=== PATIENT | male | born 1945 | race Caucasian/White ===

== ENCOUNTER → 2018-04-13 08:11 | Outpatient (CLI) | payer MEDICARE, OTHER, SELFPAY ==
[2018-04-13 10:11] LABS: ALB/GLOB Ratio 0.8 RATIO (0.9-2.4); AST(SGOT) 38 U/L (15-37); Alanine Aminotransfer ALT/SGPT 42 U/L (16-61); Albumin, Serum 3.4 g/dL (3.2-5.0); Alkaline Phosphatase 131 U/L (45-117); Anion Gap 9 (5-15); BUN 25 mg/dL (7-18); BUN/Creat Ratio 21.4 RATIO (10-20); Calcium,Total 8.7 mg/dL (8.5-10.1); Chloride 101 mmol/L (98-107); Cholesterol 108 mg/dL (200); Creatinine, Serum 1.17 mg/dL (0.70-1.30); EST Glomerular Filtration Rate 65 mL/min (>60); Est Glom Filt Rate - Afr Amer 78 mL/min (>60); Glucose 95 mg/dL (74-106); High Density Lipoprotein 41 mg/dL; Potassium 4.1 mmol/L (3.5-5.1); Protein, Total 7.4 g/dL (6.4-8.2); Sodium Level 138 mmol/L (136-145); Triglycerides 103 mg/dL; Uric Acid 4.5 mg/dL (3.5-7.2); Very Low Density Lipoprotein 21 mg/dL (5-40)
[2018-04-13 10:16] LABS: Hemoglobin A1c 8.1 % (4.2-6.3)
== END ==
PROVIDERS: Family Provider Family Medicine; PCP Family Medicine; Visit Provider Family Medicine
DX: I10 Essential (primary) hypertension (principal); E78.00 Pure hypercholesterolemia, unspecified; E11.9 Type 2 diabetes mellitus without complications
CPT/HCPCS: 36415; 80053; 80061; 83036; 84550

== ENCOUNTER → 2019-01-15 08:18 | Outpatient (CLI) | payer MEDICARE, OTHER, SELFPAY ==
[2019-01-15 11:33] LABS: PSA,Total - Annual Screen 0.41 ng/mL (0.00-4.00)
[2019-01-16 10:59] LABS: ALB/GLOB Ratio 0.9 RATIO (0.9-2.4); AST(SGOT) 44 U/L (15-37); Alanine Aminotransfer ALT/SGPT 39 U/L (16-61); Albumin, Serum 3.6 g/dL (3.2-5.0); Alkaline Phosphatase 213 U/L (45-117); Anion Gap 9 (5-15); BUN 23 mg/dL (7-18); BUN/Creat Ratio 20.4 RATIO (10-20); Chloride 103 mmol/L (98-107); Creatinine, Serum 1.13 mg/dL (0.70-1.30); EST Glomerular Filtration Rate 67 mL/min (>60); Est Glom Filt Rate - Afr Amer 81 mL/min (>60); Globulin 3.8 g/dL (2.2-4.2); Glucose 86 mg/dL (74-106); Potassium 4.1 mmol/L (3.5-5.1); Protein, Total 7.4 g/dL (6.4-8.2); Sodium Level 138 mmol/L (136-145)
[2019-01-16 11:02] LABS: Hemoglobin A1c 6.8 % (4.2-6.3)
== END ==
PROVIDERS: Family Provider Family Medicine; PCP Family Medicine; Referring Provider Family Medicine; Visit Provider Nurse Practitioner Family
DX: Z12.5 Encounter for screening for malignant neoplasm of prostate (principal); I10 Essential (primary) hypertension; E11.9 Type 2 diabetes mellitus without complications
CPT/HCPCS: 36415; 80053; 83036; 84153; G0103

== ENCOUNTER → 2020-01-01 09:18 | Outpatient (CLI) | payer MEDICARE, OTHER, SELFPAY ==
[2020-01-01 10:23] LABS: Microalbumin,Random Urine 49.1 mg/L (NO RANGE EST.); Microalbumin:Creatinine Ratio 49.8 mg/g CRE (<30 mg/g CRE)
[2020-01-01 10:25] LABS: ALB/GLOB Ratio 0.8 RATIO (0.9-2.4); AST(SGOT) 165 U/L (15-37); Alanine Aminotransfer ALT/SGPT 138 U/L (16-61); Albumin, Serum 3.3 g/dL (3.2-5.0); Alkaline Phosphatase 444 U/L (45-117); Anion Gap 5 (5-15); BUN 35 mg/dL (7-18); BUN/Creat Ratio 25.5 RATIO (10-20); Calcium,Total 8.7 mg/dL (8.5-10.1); Chloride 103 mmol/L (98-107); Cholesterol 124 mg/dL (200); Creatinine, Serum 1.37 mg/dL (0.70-1.30); EST Glomerular Filtration Rate 54 mL/min (>60); Est Glom Filt Rate - Afr Amer 65 mL/min (>60); Glucose 86 mg/dL (74-106); High Density Lipoprotein 19 mg/dL; Potassium 3.4 mmol/L (3.5-5.1); Protein, Total 7.3 g/dL (6.4-8.2); Sodium Level 136 mmol/L (136-145); Triglycerides 165 mg/dL; Very Low Density Lipoprotein 33 mg/dL (5-40)
== END ==
PROVIDERS: PCP Family Medicine; Referring Provider Family Medicine; Visit Provider Family Medicine
DX: E11.9 Type 2 diabetes mellitus without complications (principal)
CPT/HCPCS: 36415; 80053; 80061; 82043; 82570

== ENCOUNTER → 2020-01-12 09:11 | Outpatient (CLI) | payer MEDICARE, OTHER, SELFPAY ==
--- NOTE | 2020-01-12 09:30 | US_ITS ---
STUDY: ABDOMINAL ULTRASOUND - RIGHT UPPER QUADRANT REASON FOR VISIT: Male, 74 years old ELEV LDH TECHNIQUE: Ultrasound evaluation of the right upper quadrant was performed with real-time and static genao-scale imaging. TECHNICAL QUALITY: Adequate. COMPARISON: None. FINDINGS: Liver: The liver measures 17 cm. There is mildly heterogeneous echogenicity of the liver. The bile ducts are dilated. There is hepatic color flow. The direction of portal flow is hepatopetal. There is no demonstrated mass lesion. Gallbladder: There is a distended gallbladder. The gallbladder wall measures 3 mm. There is a negative sonographic Carmichael''s sign. There is no pericholecystic fluid. There are no gallstones. Common Bile Duct (C.B.D.): The common bile duct measures 15 mm. Pancreas: There is normal echogenicity of the visualized pancreas. There is no demonstrated pancreatic mass or cyst. Right Kidney: Normal size of the right kidney. The right kidney measures 13.3 x 7.1 x 6.4 cm. Normal renal cortex. The right cortex measures 1.6 cm. There well-defined anechoic simple cysts of the right kidney measuring up to 1.8 cm with posterior acoustic enhancement. Benign, incidental finding; no specific imaging workup recommended according to current ACR guidelines. There is no right hydronephrosis. US/Abdomen Limited IMPRESSION: 1. Intrahepatic and extrahepatic bile duct dilation with distended gallbladder. Distal CBD obstruction should be considered. Recommend ERCP or MRCP. 2. Heterogeneous hepatic parenchyma but no hepatic masses demonstrated. Electronically Signed: Armando Vela MD (Bro[place]) at 14:18 EDT , Service support ,
== END ==
PROVIDERS: PCP Family Medicine; Referring Provider Family Medicine; Visit Provider Family Medicine
DX: R74.0 Nonspecific elevation of levels of transaminase and lactic acid dehydrogenase [LDH] (principal)
CPT/HCPCS: 76705

== ENCOUNTER → 2020-01-17 06:04 | Outpatient (CLI) | payer MEDICARE, OTHER, SELFPAY ==
--- NOTE | 2020-01-17 06:15 | RAD_ITS ---
HISTORY: pre mri EXAMINATION/TECHNIQUE: XR Orbits Clearance FB: 2 views COMPARISON: None FINDINGS: 2 views of the orbits obtained for MRI clearance. No radiopaque foreign body identified. The orbits appear normal. The paranasal sinuses are well developed and appear clear. Bilateral mastoids likewise appear clear. Maxillary dental prosthesis. RAD/Orbits for Foreign Body IMPRESSION: 1. Negative orbits. No radiopaque foreign body. 2. Dental maxillary prosthesis. If imaging the brain, recommend removal of the dental hardware if possible. at [id number] Reported and signed by: Jackson Castle MD Electronically Signed: Jackson Castle at 7:03 EDT Tel , Service support ,
--- NOTE | 2020-01-17 06:38 | MRI_ITS ---
STUDY: MR MRCP WITHOUT CONTRAST REASON FOR EXAM: Male, 74 years old. bile duct abnormality, N/V, ABNORMAL LABS, F/U TO US TECHNIQUE: Standard MRCP technique was utilized. COMPARISON: Ultrasound 01/12/2020 FINDINGS: Gall Bladder: Normal with no distention or demonstrated fixed intraluminal filling defect. Cystic duct: Normal with no demonstrated fixed filling defect. Intrahepatic ducts: Mild intrahepatic biliary ductal dilatation. Common hepatic duct: Severe dilatation measuring 15 mm. Common bile duct: Severe dilatation to the level of the ampulla without obvious filling defect. Pancreatic duct: Severely dilated also to the level of the ampulla. MRI/MRCP Abdomen without Contrast IMPRESSION: Double duct sign with severe extrahepatic biliary ductal dilatation and pancreatic ductal dilatation to the level of the ampulla. Possibilities include ampullary stricture, ampullary mass, or pancreatic head mass. Electronically Signed: Alin Bearden MD at 8:25 EDT Tel , Service support ,
== END ==
PROVIDERS: PCP Family Medicine; Referring Provider Family Medicine; Visit Provider Family Medicine
DX: K82.9 Disease of gallbladder, unspecified (principal)
CPT/HCPCS: 70030; 74181

== ENCOUNTER → 2020-01-24 08:01 | Outpatient (CLI) | payer MEDICARE, OTHER, SELFPAY ==
[2020-01-18 08:40] VITALS: BMI 34.4
--- NOTE | 2020-01-24 08:02 | CT_ITS ---
STUDY: CT ABDOMEN AND PELVIS WITH CONTRAST REASON FOR EXAM: Male, 74 years old. Abnormal MRCP, occasional upper abdomen pain. Hx diabetes, hypertension. RADIATION DOSAGE (If Supplied By Facility): CTDIvol = ( 15.88 ) mGy, DLP = ( 1104.56 ) mGycm TECHNIQUE: Transaxial images were obtained from the dome of the diaphragm to the symphysis pubis with oral contrast. Oral and amp; IV Readi-CAT and amp; 100mL Isovue-300 was administered. Sagittal and coronal images were reconstructed. Individualized dose optimization techniques were used for this CT. COMPARISON: Comparison is made with prior MRCP and ultrasound of the abdomen. FINDINGS: The visualized lung bases are unremarkable. Coronary artery calcification. There is evidence of intrahepatic biliary ductal dilatation. The common bile duct is dilated with a transverse dimension of 1.7 cm. Normal spleen. There is dilatation of the pancreatic duct. Ampullary lesion should be ruled out. There appears to be a soft tissue mass within the second portion of the duodenum as it joins the third portion of the duodenum. This causes duodenal narrowing. This mass most likely represents either a pancreatic primary or a duodenal primary. Normal bilateral adrenal glands. Small right renal cysts. Multiple nonobstructive left intrarenal calculi. The largest measures 1 cm. There is evidence of a 2.8 cm cyst in the midportion of the left kidney. There is a small hiatal hernia. Normal small intestine. There are multiple colonic diverticula consistent with diverticulosis. The appendix is visualized and appears normal. There is diffuse atherosclerotic calcification of the abdominal aorta and the major visceral branches, without a demonstrated aneurysm. Normal inferior vena cava. Normal retroperitoneum. Normal urinary bladder. Normal abdominal wall. There are degenerative changes of the visualized lumbar spine. CT/Abdomen/Pelvis WITH Contrast IMPRESSION: Findings suggestive of a soft tissue mass in the second portion of the duodenum causing dilatation of the common bile duct and pancreatic duct as well as the intrahepatic biliary ducts. This mass is likely arises from either the pancreatic head or duodenum. Electronically Signed: Pablo Yan, at 10:39 EDT , Service support ,
== END ==
PROVIDERS: PCP Family Medicine; Referring Provider Surgery; Visit Provider Surgery
DX: K86.89 Other specified diseases of pancreas (principal); R93.3 Abnormal findings on diagnostic imaging of other parts of digestive tract
CPT/HCPCS: 74177; Q9967

== ENCOUNTER 2020-02-29 07:15 | Emergency (ER) | payer MEDICARE, OTHER, SELFPAY ==
[2020-01-18 08:40] VITALS: BMI 34.4
[2020-02-29] VITALS (8 sets, daily range): BP systolic 123–148; BP diastolic 47–60; PULSE 71–96; RESP 15–20; TEMP 36.8–38.7; O2SAT 96–100; BMI 33.5
--- NOTE | 2020-02-29 07:41 | EKG12_ITS ---
Test Reason : Blood Pressure : / mmHG Vent. Rate : 086 BPM Atrial Rate : 086 BPM P-R Int : 156 ms QRS Dur : 108 ms QT Int : 386 ms P-R-T Axes : 061 075 026 degrees QTc Int : 461 ms Normal sinus rhythm Normal ECG Confirmed by SHARON ROSALES, ALBERTA ([id number]), editor & co founder VIKKI JACKMAN ([id number]) on 03/03/2020 2:47:45 PM Referred By: JOSELITO Confirmed By:PADDY HERRERA MD
--- NOTE | 2020-02-29 07:42 | CT_ITS ---
STUDY: CT ABDOMEN AND PELVIS WITH CONTRAST REASON FOR EXAM: Male, 74 years old. FEVER, WHIPPLE 3 WKS AGO, DRAIN REMOVED 3 DAYS AGO RADIATION DOSAGE (If Supplied By Facility): CTDIvol = ( 12.38 ) mGy, DLP = ( 1108.28 ) mGycm TECHNIQUE: Transaxial images were obtained from the dome of the diaphragm to the symphysis pubis with oral contrast. Oral and amp; IV Gastrografin and amp; 75mL Isovue-300 was administered. Sagittal and coronal images were reconstructed. Individualized dose optimization techniques were used for this CT. COMPARISON: None. FINDINGS: The visualized lung bases are unremarkable. Coronary artery calcification. The patient scattered small hypodensities in the liver suggestive of a cyst. This is unchanged. The patient is status post. Cholecystectomy. The patient has had a WHIPPLE procedure with the resection of the head of the pancreas and portion of the duodenum. Postoperative increased markings are seen was likely postoperative changes. Normal spleen. There are pancreatic calcifications in the distribution of the ducts consistent with chronic pancreatitis. Normal bilateral adrenal glands. Stable 1.9 semi cyst in the lower pole of the right kidney. 4 cm cyst in the midportion of the left kidney. Stable left intrarenal calculi. Normal visualized stomach. Normal small intestine. Normal colon. The appendix is visualized and appears normal. There is diffuse atherosclerotic calcification of the abdominal aorta, without a demonstrated aneurysm. Normal inferior vena cava. Normal retroperitoneum. Normal urinary bladder. Normal abdominal wall. There are diffuse degenerative changes of the visualized lumbar spine. CT/Abdomen/Pelvis WITH Contrast IMPRESSION: Status post WHIPPLE procedure with resection of the head of the pancreas and the gallbladder and portion of duodenum with postoperative changes. Remainder of examination is unchanged. Electronically Signed: Pablo Yan, at 10:09 EDT , Service support ,
--- NOTE | 2020-02-29 07:44 | ED.DCSUM_ITS ---
- ER Visit Summary Date of Service: 02/29/20 Chief Complaint: Fever History of Present Illness: The patient is a 74 M who presents with a fever that began today. states his temperature at home was 102 this morning. Patient admits to feeling fatigued. Patient had a Whipple procedure at [facility] 3 weeks ago. Patient had his drain pulled recently. states they called the surgeon who told them to come to the emergency department. Patient denies any abdominal pain. Patient denies any nausea or vomiting. Patient denies any chest pain or shortness of breath. Patient denies any dysuria or hematuria. Patient states his incisions are healing well. Patient denies any discharge or drainage from the incisions. Patient denies any redness or swelling around the incisions. Physical Examination: Vital signs are stable. Patient is febrile here with a temperature of 101.6. Patient is in no acute distress. Oral mucosa is pink and moist. Neck is supple. Trachea is midline. There is no JVD. Heart was regular rate and rhythm. Lungs are clear and equal bilaterally. Abdomen is soft. Bowel sounds are normal. There is no tenderness. Incisions are healing well. There is no erythema or warmth noted. There is no discharge or drainage. Cranial nerves II through XII are intact. There are no focal motor or sensory deficits noted. Extremities are intact. There is no calf tenderness or edema. Test Results: EKG showed normal sinus rhythm with a rate of 86. There are no acute ST or T wave changes. CBC shows leukocytosis of 13.0. Hemoglobin was 7.6 and hematocrit of 23.7. Comprehensive metabolic profile showed a slightly elevated alkaline phosphatase of 245. Creatinine was 1.69 and BUN was 31. INR was normal at 1.3. PTT was normal. Portable chest x-ray was obtained. There is no acute cardiopulmonary process. CT scan of the abdomen pelvis was obtained. There are postoperative changes but no acute pathology. These were interpreted by the radiologist and reviewed by myself. Urinalysis was within no rmal limits. Emergency Department Course and Treatment: Patient was given IV fluids here. Case was discussed with the patient's surgeon Dr. Hagan. He was advised of the lab results. He stated the patient's hemoglobin when he was discharged was slightly above 8. He states that the anemia is not new. He recommended placing the patient on Augmentin. Patient was given his first dose here. Patient was given a prescription for Augmentin. Patient was instructed to follow-up with Dr. Hagan in 5 to 7 days. Patient was instructed return if worse in any way. Patient understood and was agreeable with the plan. All questions were answered. Disposition: Discharge home Impression: 1. Postoperative fever This note was generated with [employer] dictation software. It may contain incorrect words, spelling, and punctuation that were not noted in review of the chart prior to signing ED Disposition - Plan for ED Patient: Disposition: Home or Assisted Living Diagnosis: Postoperative fever Instructions: ED FUO Adult Prescriptions: Amox/Clavulanate Tablet [Augmentin Tablet] 875 mg PO Q12H #20 tab Transmission Status: Pending to [facility] Referrals: Jose Alston MD [Primary Care Provider] - 5-7 Days Additional Instructions: Follow-up with your surgeon in 5 to 7 days.
[2020-02-29] MEDS: 0.9% Normal Saline 1,000 ML 999 ML IV (07:47)
[2020-02-29 07:51] LABS: Absolute Lymphocyte Count 0.84 X10^3/uL (0.83-4.51); Absolute Neutrophil Count 10.4 X10^3/uL (2.0-7.7); Basophil# 0.02 X10^3/uL; Basophil% 0.2 % (0-1); Eosinophil# 0.02 X10^3/uL; Eosinophils% 0.2 % (0-5); Hematocrit 23.7 % (40-54); Hemoglobin 7.6 g/dL (13.0-16.5); Lymphocyte # 0.84 X10^3/ul (4.0); Lymphocyte % 6.4 % (19-41); Mean Corp Hgb Conc 32.1 g/dL (32-36); Mean Corpuscular Hgb 29.5 pg (27.0-32.0); Mean Corpuscular Volume 91.9 fL (80-94); Mean Platelet Vol. 9.1 fl (6.2-12.0); Monocyte# 1.71 X10^3/uL; Monocyte% 13.1 % (0-10); NRBC Flagged by Analyzer 0 % (0-5); Neutrophil # 10.37 X10^3/uL (2.7-7.7); Neutrophil % 79.6 % (47-70); POSITIVE DIFFERENTIAL YES; Platelet Count 401 K/mm3 (150-450); RBC Distribution Width CV 16.1 % (11.6-14.6); RBC Distribution Width SD 53.8 fl (35.1-43.9); Red Blood Count 2.58 M/mm3 (4.6-6.2)
[2020-02-29] MEDS: Acetaminophen 500 MG Tablet 1000 MG PO (07:55)
[2020-02-29 07:56] LABS: International Normalized Ratio 1.3; Partial Thromboplast Time 34.6 Seconds (24.1-36.2); Prothrombin Time (Protime)PT. 15.5 SECONDS (11.7-14.9)
[2020-02-29 08:04] LABS: Differential Indicated SCAN CRITERIA MET
[2020-02-29 08:08] LABS: ALB/GLOB Ratio 0.5 RATIO (0.9-2.4); AST(SGOT) 39 U/L (15-37); Alanine Aminotransfer ALT/SGPT 37 U/L (16-61); Albumin, Serum 2.2 g/dL (3.2-5.0); Alkaline Phosphatase 245 U/L (45-117); Anion Gap 4 (5-15); BUN 31 mg/dL (7-18); BUN/Creat Ratio 18.3 RATIO (10-20); Calcium,Total 8.1 mg/dL (8.5-10.1); Chloride 100 mmol/L (98-107); Creatinine, Serum 1.69 mg/dL (0.70-1.30); EST Glomerular Filtration Rate 42 mL/min (>60); Est Glom Filt Rate - Afr Amer 51 mL/min (>60); Estimated Creatinine Clearance 34.77 ml/min; Globulin 4.4 g/dL (2.2-4.2); Glucose 221 mg/dL (74-106); Lactic Acid 1.3 mmol/L (0.4-1.9); Potassium 3.3 mmol/L (3.5-5.1); Protein, Total 6.6 g/dL (6.4-8.2); Sodium Level 133 mmol/L (136-145)
--- NOTE | 2020-02-29 08:20 | RAD_ITS ---
STUDY: X-RAY CHEST REASON FOR EXAM: Male, 74 years old. Whipple Procedure done 3 weeks ago, Drain removed 3 days ago, fever onset yesterday. TECHNIQUE: Single AP portable view of the chest. COMPARISON: Comparison is made with prior study dated 10/10/2014. FINDINGS: EKG electrodes are seen. The lungs are clear and expanded. There is no demonstrated pleural abnormality. Normal size heart. Normal mediastinum and david. Normal visualized pulmonary arteries. There is atherosclerotic calcification of the aortic arch with tortuosity. There are diffuse degenerative changes of the visualized thoracic spine. There is degenerative osteoarthritis of the bilateral shoulders. There is no demonstrated abnormality of the visualized soft tissue structures of the upper abdomen. RAD/Chest 1 View (Portable) IMPRESSION: Stable examination. No acute abnormality is seen. Electronically Signed: Pablo Yan, at 8:53 EDT , Service support ,
[2020-02-29 08:28] LABS: Differential Comment SCANNED; Hypochromasia 2+
[2020-02-29 11:05] LABS: Bacteria 0 SEEN /hpf (None Seen); Color, Urine Yellow (Yellow); Glucose, Dipstick Normal (Normal); Ketone-Dipstick Negative (Negative); Leukocyte Esterase-Dipstick Negative /ul (Negative); Mucous, Urine 0 SEEN /hpf (<or=2+); Nitrite-Dipstick Negative (Negative); Occult Blood-Urine 10 /ul (Negative); Protein-Dipstick 30 mg/dl (Negative); Squamous Epithelial Cells - UA 0 SEEN /hpf (0-5); Urine Bilirubin Dipstick Negative (Negative); Urine Clarity Clear (Clear); Urine Urobilinogen Normal (Normal); White Blood Cells 0 SEEN /hpf (0-5)
[2020-02-29 11:14] LABS: Red Blood Cells-Urine 0-5 SEEN /hpf (0-5)
[2020-02-29] MEDS: Amox/Clavulanate 875 MG Tablet PO (13:15)
[2020-03-03 12:10] LABS: Pathologist Review Reviewed
== END 2020-02-29 13:33 | disposition home or self-care (01) ==
PROVIDERS: Emergency Provider Emergency Medicine; PCP Family Medicine
DX: R50.82 Postprocedural fever (principal); E11.9 Type 2 diabetes mellitus without complications; Z79.4 Long term (current) use of insulin; Z79.82 Long term (current) use of aspirin
CPT/HCPCS: 71045; 74177; 80053; 81001; 83605; 85025; 85610; 85730; 87040; 87086; 87635; 93005; 96360; 96361; 99285; J7030; Q9967; A4216; U0003

== ENCOUNTER 2020-03-13 21:53 | Emergency (ER) | payer MEDICARE, OTHER, SELFPAY ==
[2020-02-29 07:17] VITALS: BMI 33.5
[2020-03-13 21:55] VITALS: BP 109/60; PULSE 92; RESP 18; TEMP 38.8; O2SAT 98; BMI 33.5
--- NOTE | 2020-03-13 23:07 | EKG12_ITS ---
Test Reason : FEVER, SOB Blood Pressure : / mmHG Vent. Rate : 083 BPM Atrial Rate : 083 BPM P-R Int : 166 ms QRS Dur : 114 ms QT Int : 398 ms P-R-T Axes : 065 071 047 degrees QTc Int : 467 ms Normal sinus rhythm Normal ECG Confirmed by SHARON ROSALES, ALBERTA ([id number]), magazine editor VIKKI JACKMAN ([id number]) on 03/27/2020 9:38:02 A M Referred By: MARY JO Confirmed By:PADDY HERRERA MD
--- NOTE | 2020-03-13 23:08 | ED.VIS.GEN ---
History of Present Illness Chief Complaint: Nausea/Vomiting Detail of Chief Complaint: malaise, chills, n/v Informant: Patient Onset: Days - 2-3 Context: Gradual Onset Timing: Waxes and wanes Quality: malaise, chills Location: all over Current Severity: Moderate Maximum Severity: Moderate Worsened by: nothing Relieved by: nothing Associated Symptoms: n/v, syncope in shower tonight Narrative: Patient had a Whipple procedure for pancreatic cancer 5 weeks ago at [facility], about a week or so ago he had chills, malaise, nausea and was seen here in the ER placed on Augmentin, with no definite source identified, and he felt better. He finished that. About 2 to 3 days ago, roughly a day after he finished the Augmentin, he started feeling the symptoms again, along with lightheadedness off and on today, mostly with standing or walking. The nausea and vomiting really started today, he only vomited up a small amount of green stuff once. He has been having bowel movements but not eating great, so not much. He denies any abdominal pain. He denies any chest pain or shortness of breath. He has had a nonproductive cough. He was tested for COVID-19 before his operation and when he was here in the ER, negative both times. He denies any known contact with anyone infected with COVID-19 since then. He denies traveling out of the immediate area recently. He has been drinking some fluids, but not great. Tonight he was feeling cold, likely because of his fever, so the states that they had the bathroom very hot, he was taken a shower, he started feeling lightheaded again, she was there and helped lower him to the floor, he briefly passed out, and then regained consciousness without any other new symptoms. He denies any palpitations, chest pain, or dyspnea preceding this episode, just lightheadedness. - Past Medical History (1) Pancreatic cancer Status: Chronic (2) Diabetes mellitus Status: Chronic Past Medical History - Allergies and Home Meds Allergies/Adverse Reactions: Allergies varicella-zoster immune globulin (h Adverse Reaction (Mild, Verified 03/13/20 21:54) syncope Primary Care Physician: Dr. Bentley [Other] (as scheduled) Jose Alston MD [Primary Care Provider] - Lives: Spouse/ Significant Other Smoking Status: Never smoker Review of Systems General: Reports: Chills, Fever, Malaise. Denies: Sweats Eyes: Denies: Visual changes - bilaterally, Diplopia ENT: Denies: Bilateral ear pain, Rhinorrhea, Sore throat Cardiovascular: Denies: Chest pain, Palpitations Respiratory: Reports: Cough. Denies: Dyspnea, Sputum, Dyspnea on exertion Gastrointestinal: Reports: Nausea, Vomiting. Denies: Abdominal pain, Diarrhea, Melena, Hematochezia Genitourinary: Denies: Dysuria, Hematuria, Frequency Musculoskeletal: Denies: Myalgias, Neck pain, Back pain, Swelling, Extremity Pain Skin: Denies: Rash, Wounds Neurological: Denies: Headache, Weakness, Numbness Physical Exam Vital Signs/Narrative: Vital Signs Temp Pulse Resp BP Pulse Ox 03/13/20 21:55 101.8 F H 92 18 109/60 98 Inital Vital Signs reviewed: Yes General: Well nourished, Well developed, No Acute Distress Head: Normocephalic, Atraumatic Eyes: Perrl, EOMI ENT: Moist mucous membranes - lips dry, No rhinorrhea Neck: Supple, Nontender Cardiovascular: Regular rate, Regular rhythm, No murmurs. Negative for: Tachycardia Respiratory: No distress, CTA bilaterally, Chest nontender Abdomen: Soft, Nontender, Nondistended, Normal bowel sounds, - - well-healed laparascopic surgical incisions Back: Nontender, Normal Inspection Extremities: Nontender, No edema. Negative for: Calf Tenderness Skin: Normal color, No rash, No Trauma Neurological: Alert, Oriented x3, Cranial nerves II-XII grossly intact, Normal Strength, Normal Sensation Psychological: Normal affect, Normal Mood Diagnostic/Tx/Re-eval Impressions Chest X-Ray 03/13/20 23:28 IMPRESSION: Normal x-ray examination of the chest. Electronically Signed: Sergo Patel MD at 23:53 EDT Tel , Service support , Abdomen CT 03/14/20 01:04 IMPRESSION: There is pneumobilia in the LEFT lobe of liver which could be related to prior cholecystectomy and sphincterotomy. There has been a cholecystectomy. There bilateral kidney cysts and stones. There is NO hydronephrosis. There has been gastric surgery. Normal small intestine. Normal colon. The appendix is visualized and appears normal. There is NO ascites or free air, abscess or adenopathy. Electronically Signed: Duc Cox MD at 3:37 EDT , Service support , 03/13/20 23:28 Chest 1 View (Portable) [RAD] Stat 03/14/20 01:04 CT Abd [Abdomen/Pel W ORAL Cont Only] [CT] Stat Laboratory Results 03/13/20 03/13/20 03/13/20 22:00 22:00 22:00 WBC RBC Hgb Hct MCV MCH MCHC RDW Std Deviation RDW Coeff of Lanre Plt Count MPV Immature Gran % (Auto) Neut % (Auto) Lymph % (Auto) Dougherty % (Auto) Eos % (Auto) Baso % (Auto) Absolute Neuts (auto) Absolute Lymphs (auto) Nucleated RBC % Differential Comment Hypochromasia PT 15.7 H INR 1.3 APTT 31.7 Sodium 134 L Potassium 3.4 L Chloride 102 Carbon Dioxide 24.0 Anion Gap 8 BUN 35 H Creatinine 1.82 H Estim Creat Clear Calc 32.28 Est GFR (MDRD) Af Amer 47 L Est GFR (MDRD) Non-Af 39 L BUN/Creatinine Ratio 19.2 Glucose 290 H Lactic Acid 2.6 H* Calcium 8.2 L Total Bilirubin 1.30 H AST 45 H ALT 38 Alkaline Phosphatase 150 H Troponin I < 0.015 Total Protein 6.6 Albumin 2.2 L Globulin 4.4 H Albumin/Globulin Ratio 0.5 L Urine Color Urine Clarity Urine pH Ur Specific [place] Urine Protein Urine Glucose (UA) Urine Ketones Urine Occult Blood Urine Nitrite Urine Bilirubin Urine Urobilinogen Ur Leukocyte Esterase Urine RBC Urine WBC Ur Squamous Epith Cells Amorphous Sediment Urine Bacteria Urine Mucus 03/13/20 03/13/20 22:40 23:07 WBC 17.9 H RBC 2.88 L Hgb 8.3 L Hct 26.2 L MCV 91.0 MCH 28.8 MCHC 31.7 L RDW Std Deviation 57.6 H RDW Coeff of Lanre 17.1 H Plt Count 380 MPV 9.4 Immature Gran % (Auto) 0.700 Neut % (Auto) 89.3 H Lymph % (Auto) 2.0 L Dougherty % (Auto) 7.9 Eos % (Auto) 0.0 Baso % (Auto) 0.1 Absolute Neuts (auto) 16.0 H Absolute Lymphs (auto) 0.36 L Nucleated RBC % 0 Differential Comment SCANNED Hypochromasia RARE PT INR APTT Sodium Potassium Chloride Carbon Dioxide Anion Gap BUN Creatinine Estim Creat Clear Calc Est GFR (MDRD) Af Amer Est GFR (MDRD) Non-Af BUN/Creatinine Ratio Glucose Lactic Acid Calcium Total Bilirubin AST ALT Alkaline Phosphatase Troponin I Total Protein Albumin Globulin Albumin/Globulin Ratio Urine Color Yellow Urine Clarity Sl. Cloudy Urine pH 5.0 Ur Specific [place] 1.020 Urine Protein 100 H Urine Glucose (UA) 250 H Urine Ketones 5 H Urine Occult Blood 250 H Urine Nitrite Negative Urine Bilirubin 1 H Urine Urobilinogen 4 H Ur Leukocyte Esterase 25 H Urine RBC 10-25 SEEN Urine WBC 0-5 SEEN Ur Squamous Epith Cells 0-5 SEEN Amorphous Sediment 1+ URATE Urine Bacteria 0 SEEN Urine Mucus 0 SEEN - Rhythm Strip Rhythm Strip: Sinus Rhythm Rate: 83 Ectopy: None - EKG Initial EKG Interpretation: Sinus Rhythm, No Acute Injury Pattern - normal EKG Prior: Unchanged - Medical Decision Making Labs show a higher leukocytosis then 2 weeks ago, slight elevation in lactate, but no evidence of a source of his fever and leukocytosis. Furthermore, his urine and blood cultures from 2 weeks ago returned negative. It is interesting that he was feeling better while on Augmentin. I discussed with his surgeon Dr. Hagan, he agreed with the above and recommended a repeat CT scan with oral contrast, we will avoid IV contrast given his renal insufficiency that is slightly worse than before, even though the patient is not having abdominal pain. Patient was amenable to this, it was performed with oral contrast only. With regards to his syncope, after IV fluids we ambulated him he did not have any lightheadedness or repeat syncope, and I suspect he was mildly dehydrated and with the vasodilatation that comes with being in a very hot environment simultaneously, I think this caused him to have a syncopal episode. He had no injury from this, his cardiac work-up is normal/unremarkable, and I do not think he needs admission or further emergent work-up for this particular issue. CT returned showing nothing acute as above. Discussed again with Dr. Hagan. He is comfortable with patient going home, they do want to go home. He advises placing him back on Augmentin for now, and he will see him in the office later today during his appointment. Placed on another 10-day course of Augmentin. ED Disposition - Plan for ED Patient: Disposition: Home or Assisted Living Diagnosis: Fever, Postoperative state, Syncope, Mild dehydration, SIRS (systemic inflammatory response syndrome) Instructions: ED FUO Adult Prescriptions: Amoxicillin/Potassium Clav [Augmentin 875-125 Tablet] 1 ea PO BID #20 tab Prescription Printed Referrals: Jose Alston MD [Primary Care Provider] - Dr. Bentley [Other] (as scheduled)
[2020-03-13 23:21] LABS: Bacteria 0 SEEN /hpf (None Seen); Mucous, Urine 0 SEEN /hpf (<or=2+)
[2020-03-13 23:23] VITALS: BP 125/51; PULSE 86; RESP 19; O2SAT 99
[2020-03-13 23:23] LABS: Absolute Lymphocyte Count 0.36 X10^3/uL (0.83-4.51); Basophil# 0.01 X10^3/uL; Basophil% 0.1 % (0-1); Hematocrit 26.2 % (40-54); Hemoglobin 8.3 g/dL (13.0-16.5); Lymphocyte # 0.36 X10^3/ul (4.0); Mean Corp Hgb Conc 31.7 g/dL (32-36); Mean Corpuscular Hgb 28.8 pg (27.0-32.0); Mean Platelet Vol. 9.4 fl (6.2-12.0); Monocyte# 1.41 X10^3/uL; Monocyte% 7.9 % (0-10); NRBC Flagged by Analyzer 0 % (0-5); Neutrophil # 16.03 X10^3/uL (2.7-7.7); Neutrophil % 89.3 % (47-70); POSITIVE DIFFERENTIAL YES; Platelet Count 380 K/mm3 (150-450); RBC Distribution Width CV 17.1 % (11.6-14.6); RBC Distribution Width SD 57.6 fl (35.1-43.9); Red Blood Count 2.88 M/mm3 (4.6-6.2); White Blood Count 17.9 K/mm3 (4.4-11.0)
[2020-03-13 23:23] LABS: Color, Urine Yellow (Yellow); Glucose, Dipstick 250 mg/dl (Normal); Ketone-Dipstick 5 mg/dl (Negative); Leukocyte Esterase-Dipstick 25 /ul (Negative); Nitrite-Dipstick Negative (Negative); Occult Blood-Urine 250 /ul (Negative); Protein-Dipstick 100 mg/dl (Negative); Urine Clarity Sl. Cloudy (Clear); Urine Urobilinogen 4 mg/dl (Normal)
[2020-03-13 23:24] LABS: Urine Bilirubin Dipstick 1 mg/dL (Negative)
[2020-03-13] MEDS: Acetaminophen 500 MG Tablet 1000 MG PO (23:24)
[2020-03-13] MEDS: 0.9% Normal Saline 1,000 ML 999 ML IV (23:24)
--- NOTE | 2020-03-13 23:28 | RAD_ITS ---
STUDY: X-RAY CHEST REASON FOR EXAM: Male, 74 years old. Fever, nausea, vomiting. TECHNIQUE: Single frontal view of the chest. COMPARISON: 02/29/2020 FINDINGS: The lungs are clear and expanded. There is no demonstrated pleural abnormality. Normal size heart. Normal mediastinum and david. Normal visualized pulmonary arteries. Normal visualized aortic arch and descending thoracic aorta. Normal visualized thoracic spine. Normal visualized ribs, clavicles, and shoulders. There is no demonstrated abnormality of the visualized soft tissue structures of the upper abdomen. RAD/Chest 1 View (Portable) IMPRESSION: Normal x-ray examination of the chest. Electronically Signed: Sergo Patel MD at 23:53 EDT Tel , Service support ,
[2020-03-13 23:29] LABS: Differential Indicated SCAN CRITERIA MET
[2020-03-13 23:34] LABS: Amorphous Sediment 1+ URATE; Red Blood Cells-Urine 10-25 SEEN /hpf (0-5); Squamous Epithelial Cells - UA 0-5 SEEN /hpf (0-5); White Blood Cells 0-5 SEEN /hpf (0-5)
[2020-03-13 23:39] LABS: ALB/GLOB Ratio 0.5 RATIO (0.9-2.4); AST(SGOT) 45 U/L (15-37); Alanine Aminotransfer ALT/SGPT 38 U/L (16-61); Albumin, Serum 2.2 g/dL (3.2-5.0); Alkaline Phosphatase 150 U/L (45-117); Anion Gap 8 (5-15); BUN 35 mg/dL (7-18); BUN/Creat Ratio 19.2 RATIO (10-20); Calcium,Total 8.2 mg/dL (8.5-10.1); Chloride 102 mmol/L (98-107); Creatinine, Serum 1.82 mg/dL (0.70-1.30); EST Glomerular Filtration Rate 39 mL/min (>60); Est Glom Filt Rate - Afr Amer 47 mL/min (>60); Estimated Creatinine Clearance 32.28 ml/min; Globulin 4.4 g/dL (2.2-4.2); Glucose 290 mg/dL (74-106); Potassium 3.4 mmol/L (3.5-5.1); Protein, Total 6.6 g/dL (6.4-8.2); Sodium Level 134 mmol/L (136-145)
[2020-03-13 23:46] LABS: Lactic Acid 2.6 mmol/L (0.4-1.9)
[2020-03-13 23:47] VITALS: BP 124/46; PULSE 85; RESP 16; TEMP 36.7; O2SAT 98
[2020-03-13 23:47] LABS: International Normalized Ratio 1.3; Prothrombin Time (Protime)PT. 15.7 SECONDS (11.7-14.9)
[2020-03-13 23:48] LABS: Partial Thromboplast Time 31.7 Seconds (24.1-36.2)
[2020-03-13 23:54] LABS: Differential Comment SCANNED; Hypochromasia RARE
[2020-03-14] VITALS (7 sets, daily range): BP systolic 106–112; BP diastolic 48–68; PULSE 68–78; RESP 14–18; TEMP 36.3–37.1; O2SAT 97–99
--- NOTE | 2020-03-14 01:04 | CT_ITS ---
STUDY: CT ABDOMEN AND PELVIS WITHOUT CONTRAST REASON FOR EXAM: Male, 74 years old. FEVER,ELEVATED WBC,NAUSEA AND VOMITING.PT IS POST-OP WHIPPLE PROCEDURE ON 02-07-20 -- HX:DIABETES,HTN,PANCREATIC CANCER RADIATION DOSAGE (If Supplied By Facility): CTDIvol = ( 14.53 ) mGy, DLP = ( 751.69 ) mGycm TECHNIQUE: Transaxial images were obtained from the dome of the diaphragm to the symphysis pubis without oral contrast, and without intravenous contrast. Sagittal and coronal images were reconstructed. Individualized dose optimization techniques were used for this CT. COMPARISON: 02/29/2020 FINDINGS: The visualized lung bases are unremarkable. The visualized portions of the heart are within normal limits. There is pneumobilia in the LEFT lobe of liver which could be related to prior cholecystectomy and sphincterotomy. There has been a cholecystectomy. Normal spleen. There has been pancreatic surgery. Normal bilateral adrenal glands. There bilateral kidney cysts and stones. There is NO hydronephrosis. There has been gastric surgery. Normal small intestine. Normal colon. The appendix is visualized and appears normal. There is diffuse atherosclerotic calcification of the abdominal aorta, without a demonstrated aneurysm. Normal inferior vena cava. Normal retroperitoneum. Normal urinary bladder. There is NO ascites or free air, abscess or adenopathy. Normal abdominal wall. Normal osseous structures. CT/Abdomen/Pel W ORAL Cont Only IMPRESSION: There is pneumobilia in the LEFT lobe of liver which could be related to prior cholecystectomy and sphincterotomy. There has been a cholecystectomy. There bilateral kidney cysts and stones. There is NO hydronephrosis. There has been gastric surgery. Normal small intestine. Normal colon. The appendix is visualized and appears normal. There is NO ascites or free air, abscess or adenopathy. Electronically Signed: Duc Cox MD at 3:37 EDT , Service support ,
[2020-03-14 03:17] LABS: Reflex Lactate? Y
[2020-03-14] MEDS: Amox/Clavulanate 875 MG Tablet PO (04:28)
== END 2020-03-14 04:34 | disposition home or self-care (01) ==
PROVIDERS: Emergency Provider Emergency Medicine; PCP Family Medicine
DX: R50.9 Fever, unspecified (principal); R55 Syncope and collapse; E86.0 Dehydration; R65.10 Systemic inflammatory response syndrome (SIRS) of non-infectious origin without acute organ dysfunction; N28.9 Disorder of kidney and ureter, unspecified; I10 Essential (primary) hypertension; E11.9 Type 2 diabetes mellitus without complications; Z90.49 Acquired absence of other specified parts of digestive tract; Z79.4 Long term (current) use of insulin; Z79.82 Long term (current) use of aspirin
CPT/HCPCS: 36415; 71045; 74176; 80053; 81001; 83605; 84484; 85025; 85610; 85730; 87040; 87077; 87086; 87186; 93005; 96360; 99283; 99285; J7030; A4216

== ENCOUNTER 2020-05-06 15:31 | Emergency (ER) | payer MEDICARE, OTHER, SELFPAY ==
[2020-05-06 15:32] VITALS: BP 136/90; PULSE 93; RESP 16; TEMP 38.2; O2SAT 96; BMI 32.7
--- NOTE | 2020-05-06 15:56 | ED.VIS.GEN ---
History of Present Illness Chief Complaint: General Illness Informant: Patient Narrative: 74-year-old male status post Whipple procedure about 3 months ago presenting with right-sided abdominal pain and fever. He states that is where he had pain before he had a pancreatic mass removed and Whipple procedure was performed. He states that he is followed up with Dr. Valdez outpatient basis and had scans showing that he was cancer free. He states he does not have nausea/vomiting. He states he is making stool. He does admit to elevated blood sugars over the last couple of days and urinary frequency. - Past Medical History (1) Diabetes mellitus Status: Chronic (2) Pancreatic cancer Status: Chronic Past Medical History - Allergies and Home Meds Allergies/Adverse Reactions: Allergies varicella-zoster immune globulin (h Adverse Reaction (Mild, Verified 03/13/20 21:54) syncope Primary Care Physician: Jose Alston MD [Primary Care Provider] - Prior records reviewed: Yes Past Medical History: - - Reviewed in problem list Surgical History: - - Whipple procedure Smoking Status: Never smoker Review of Systems General: Reports: Fever. Denies: Malaise Eyes: Denies: Visual changes - bilaterally, Diplopia ENT: Denies: Rhinorrhea, Sore throat Cardiovascular: Denies: Chest pain, Palpitations Respiratory: Denies: Dyspnea, Cough, Dyspnea on exertion Gastrointestinal: Reports: Abdominal pain. Denies: Diarrhea, Constipation Musculoskeletal: Denies: Myalgias, Arthralgias Skin: Denies: Rash, Abscess Neurological: Denies: Parasthesia, Numbness Psych: Denies: Depression, Anxiety Endocrine: Reports: Polyuria. Denies: Heat intolerance Hematologic: Denies: Easy bruising, Easy bleeding Physical Exam Vital Signs/Narrative: Vital Signs Temp Pulse Resp BP Pulse Ox 05/06/20 15:32 100.8 F H 93 16 136/90 H 96 Inital Vital Signs reviewed: Yes General: Well nourished, Well developed Head: Normocephalic, Atraumatic Eyes: Perrl, EOMI. Negative for: Pale conjunctiva, Scleral icterus ENT: Moist mucous membranes, No rhinorrhea Cardiovascular: Regular rate, Regular rhythm Respiratory: No distress, CTA bilaterally Abdomen: Soft, Nondistended, Tender - Right side of abdomen. Abdomen is nonperitoneal. Back: Negative for: Nontender, Normal Inspection Extremities: Negative for: Nontender, No edema Skin: Negative for: Normal color, No rash, Jaundice Neurological: Alert, Oriented x3 Psychological: Normal affect, Normal Mood Diagnostic/Tx/Re-eval Clinical Impression(s) from Imaging Studies Abdomen/Pelvis CT 05/06/20 16:26 IMPRESSION: Postoperative change. No obstruction. Colonic diverticulosis. Bilateral renal stones. No hydronephrosis. Electronically Signed: Fran Scott MD at 19:42 EST , Service support , Laboratory Data 05/06/20 05/06/20 05/06/20 15:45 15:45 17:42 WBC 12.8 H RBC 3.81 L Hgb 10.1 L Hct 31.1 L MCV 81.6 MCH 26.5 L MCHC 32.5 RDW Std Deviation 50.9 H RDW Coeff of Lanre 17.1 H Plt Count 456 H MPV 9.5 Immature Gran % (Auto) 0.800 Neut % (Auto) 78.6 H Lymph % (Auto) 7.9 L [place] % (Auto) 12.4 H Eos % (Auto) 0.1 Baso % (Auto) 0.2 Absolute Neuts (auto) 10.1 H Absolute Lymphs (auto) 1.01 Nucleated RBC % 0 Differential Comment Diff Path Review May foll Sodium 137 Potassium 3.5 Chloride 101 Carbon Dioxide 28.0 Anion Gap 8 BUN 23 H Creatinine 1.32 H Estim Creat Clear Calc 44.51 Est GFR (MDRD) Af Amer 68 Est GFR (MDRD) Non-Af 56 L BUN/Creatinine Ratio 17.4 Glucose 308 H Calcium 8.6 Total Bilirubin 0.60 Direct Bilirubin 0.40 H AST 25 ALT 33 Alkaline Phosphatase 210 H Total Protein 7.1 Albumin 2.3 L Globulin 4.8 H Lipase 48 L Urine Color Yellow Urine Clarity Sl. Cloudy Urine pH 5.0 Ur Specific [place] 1.010 Urine Protein 100 H Urine Glucose (UA) 1000 H Urine Ketones 5 H Urine Occult Blood 150 H Urine Nitrite Negative Urine Bilirubin Negative Urine Urobilinogen 1 H Ur Leukocyte Esterase Negative Urine RBC 10-25 SEEN Urine WBC 0 SEEN Ur Squamous Epith Cells 0-5 SEEN Urine Bacteria 0 SEEN Urine Mucus 0 SEEN - Medical Decision Making Presenting today with fever and abdominal pain. He is concerned that his fever is associated with his previous surgeries. Otherwise his vital signs are stable. His temperature was 100.8 on arrival. He has no respiratory symptoms, nausea, fatigue. His lab work shows a slight leukocytosis at 12.8. He is slightly dehydrated. He was given IV fluids, pain and nausea medication. Patient CT abdomen pelvis with oral and IV contrast which was negative for acute process. Urinalysis is negative. Patient still denies any has any respiratory symptoms but given his negative work-up I felt he was safe to be discharged home. He was given return precautions. Patient also still denying any respiratory symptoms but I did test him for Covid and he will quarantine at home. Impression: 1. Fever 2. Abdominal pain 3. Leukocytosis ED Disposition - Plan for ED Patient: Disposition: Home or Assisted Living Instructions: Abdominal Pain, Coronavirus Disease 2019 (COVID-19): Caring for Yourself or Others, ED Fever Control (Adult) Referrals: Jose Alston MD [Primary Care Provider] -
--- NOTE | 2020-05-06 16:26 | CT_ITS ---
STUDY: CT ABDOMEN AND PELVIS WITH CONTRAST REASON FOR EXAM: Male, 74 years old. Abdomen pain and decreased appetite x 3 months, fatigue and weakness, s/p Whipple 01/2020. Elevated WBC today, trouble controlling urine. RADIATION DOSAGE (If Supplied By Facility): CTDIvol = ( 18.67 ) mGy, DLP = ( 2063.58 ) mGycm TECHNIQUE: Transaxial images were obtained from the dome of the diaphragm to the symphysis pubis with oral contrast. 100mL Isovue-300 was administered. Sagittal and coronal images were reconstructed. Individualized dose optimization techniques were used for this CT. COMPARISON: March 14, 2020 FINDINGS: There is right lower lung atelectasis There are coronary artery calcifications. There is hepatomegaly with diffuse hepatic enlargement. There are small hypodensities in the liver suggesting cysts. There are surgical clips in the gallbladder fossa consistent with a prior cholecystectomy. Normal spleen. There are pancreatic calcifications in the distribution of the ducts consistent with chronic pancreatitis. There is resection of the pancreatic head. Normal bilateral adrenal glands. There are cysts and hypodensities of the kidneys measuring up to 2.8 cm on the left. There is 0.2 cm right renal calcification. There are at least 3 left renal calcifications measuring 0.2 to 1.2 cm. No hydronephrosis. Postoperative changes of the distal stomach and loops of small intestine. There are multiple colonic diverticula consistent with diverticulosis. The appendix is visualized and appears normal. There is diffuse atherosclerotic calcification of the abdominal aorta, without a demonstrated aneurysm. Normal inferior vena cava. Normal retroperitoneum. Normal urinary bladder. There is no free fluid in the abdomen or pelvis. Normal abdominal wall. There are diffuse degenerative changes of the visualized lumbar spine. CT/Abdomen/Pelvis WITH Contrast IMPRESSION: Postoperative change. No obstruction. Colonic diverticulosis. Bilateral renal stones. No hydronephrosis. Electronically Signed: Fran Scott MD at 19:42 EST , Service support ,
[2020-05-06 16:46] LABS: Absolute Lymphocyte Count 1.01 X10^3/uL (0.83-4.51); Absolute Neutrophil Count 10.1 X10^3/uL (2.0-7.7); Basophil# 0.02 X10^3/uL; Basophil% 0.2 % (0-1); Eosinophil# 0.01 X10^3/uL; Eosinophils% 0.1 % (0-5); Hematocrit 31.1 % (40-54); Hemoglobin 10.1 g/dL (13.0-16.5); Lymphocyte # 1.01 X10^3/ul (4.0); Lymphocyte % 7.9 % (19-41); Mean Corp Hgb Conc 32.5 g/dL (32-36); Mean Corpuscular Hgb 26.5 pg (27.0-32.0); Mean Corpuscular Volume 81.6 fL (80-94); Mean Platelet Vol. 9.5 fl (6.2-12.0); Monocyte# 1.59 X10^3/uL; Monocyte% 12.4 % (0-10); NRBC Flagged by Analyzer 0 % (0-5); Neutrophil # 10.06 X10^3/uL (2.7-7.7); Neutrophil % 78.6 % (47-70); POSITIVE DIFFERENTIAL YES; Platelet Count 456 K/mm3 (150-450); RBC Distribution Width CV 17.1 % (11.6-14.6); RBC Distribution Width SD 50.9 fl (35.1-43.9); Red Blood Count 3.81 M/mm3 (4.6-6.2); White Blood Count 12.8 K/mm3 (4.4-11.0)
[2020-05-06 16:47] LABS: Differential Indicated SCAN CRITERIA MET
[2020-05-06 17:04] LABS: AST(SGOT) 25 U/L (15-37); Alanine Aminotransfer ALT/SGPT 33 U/L (16-61); Albumin, Serum 2.3 g/dL (3.2-5.0); Alkaline Phosphatase 210 U/L (45-117); Anion Gap 8 (5-15); BUN 23 mg/dL (7-18); BUN/Creat Ratio 17.4 RATIO (10-20); Calcium,Total 8.6 mg/dL (8.5-10.1); Chloride 101 mmol/L (98-107); Creatinine, Serum 1.32 mg/dL (0.70-1.30); EST Glomerular Filtration Rate 56 mL/min (>60); Est Glom Filt Rate - Afr Amer 68 mL/min (>60); Estimated Creatinine Clearance 44.51 ml/min; Globulin 4.8 g/dL (2.2-4.2); Glucose 308 mg/dL (74-106); Lipase 48 U/L (73-393); Potassium 3.5 mmol/L (3.5-5.1); Protein, Total 7.1 g/dL (6.4-8.2); Sodium Level 137 mmol/L (136-145)
[2020-05-06] MEDS: 0.9% Normal Saline 1,000 ML 1000 ML IV (17:09)
[2020-05-06 17:43] VITALS: BP 155/56; PULSE 91; RESP 16; O2SAT 96
[2020-05-06 19:11] LABS: Bacteria 0 SEEN /hpf (None Seen); Color, Urine Yellow (Yellow); Glucose, Dipstick 1000 mg/dl (Normal); Ketone-Dipstick 5 mg/dl (Negative); Leukocyte Esterase-Dipstick Negative /ul (Negative); Mucous, Urine 0 SEEN /hpf (<or=2+); Nitrite-Dipstick Negative (Negative); Occult Blood-Urine 150 /ul (Negative); Protein-Dipstick 100 mg/dl (Negative); Urine Bilirubin Dipstick Negative (Negative); Urine Clarity Sl. Cloudy (Clear); Urine Urobilinogen 1 mg/dl (Normal); White Blood Cells 0 SEEN /hpf (0-5)
[2020-05-06 19:17] LABS: Red Blood Cells-Urine 10-25 SEEN /hpf (0-5); Squamous Epithelial Cells - UA 0-5 SEEN /hpf (0-5)
[2020-05-06 19:19] VITALS: BP 170/51; PULSE 94; RESP 18; TEMP 38.5; O2SAT 96
[2020-05-06 20:49] VITALS: BP 172/44; PULSE 86; RESP 16; O2SAT 94
[2020-05-06] MEDS: Acetaminophen 500 MG Tablet 1000 MG PO (20:57)
--- NOTE | 2020-05-06 21:35 | ED.RN ---
updated pt's at id
[2020-05-07 13:41] LABS: Pathologist Review Reviewed
== END 2020-05-06 21:36 | disposition home or self-care (01) ==
PROVIDERS: Emergency Provider Student in an Organized Health Care Education/Training Program; PCP Family Medicine
DX: R10.9 Unspecified abdominal pain (principal); R50.9 Fever, unspecified; D72.829 Elevated white blood cell count, unspecified; E11.65 Type 2 diabetes mellitus with hyperglycemia; Z85.07 Personal history of malignant neoplasm of pancreas; Z79.4 Long term (current) use of insulin; Z79.82 Long term (current) use of aspirin; Z79.899 Other long term (current) drug therapy
CPT/HCPCS: 74177; 80048; 80076; 81001; 83690; 85025; 87635; 96360; 96361; 99285; J7030; Q9967; A4216; U0003

== ENCOUNTER 2020-05-08 12:25 | Emergency (ER) | payer MEDICARE, OTHER, SELFPAY ==
[2020-05-08 12:26] VITALS: BP 122/54; PULSE 82; RESP 18; TEMP 36.8; O2SAT 98; BMI 33.3
[2020-05-08 13:01] VITALS: BP 122/54; PULSE 82; RESP 18; TEMP 36.8; O2SAT 98
[2020-05-08 13:29] LABS: Absolute Lymphocyte Count 0.86 X10^3/uL (0.83-4.51); Absolute Neutrophil Count 14.4 X10^3/uL (2.0-7.7); Basophil# 0.02 X10^3/uL; Basophil% 0.1 % (0-1); Hematocrit 31.3 % (40-54); Hemoglobin 10.2 g/dL (13.0-16.5); Lymphocyte # 0.86 X10^3/ul (4.0); Lymphocyte % 5.1 % (19-41); Mean Corp Hgb Conc 32.6 g/dL (32-36); Mean Corpuscular Hgb 26.3 pg (27.0-32.0); Mean Corpuscular Volume 80.7 fL (80-94); Mean Platelet Vol. 9.4 fl (6.2-12.0); Monocyte# 1.35 X10^3/uL; Monocyte% 8.1 % (0-10); NRBC Flagged by Analyzer 0 % (0-5); Neutrophil # 14.44 X10^3/uL (2.7-7.7); Neutrophil % 86.2 % (47-70); Platelet Count 570 K/mm3 (150-450); RBC Distribution Width CV 17.2 % (11.6-14.6); RBC Distribution Width SD 50.6 fl (35.1-43.9); Red Blood Count 3.88 M/mm3 (4.6-6.2); White Blood Count 16.8 K/mm3 (4.4-11.0)
[2020-05-08 13:45] LABS: ALB/GLOB Ratio 0.5 RATIO (0.9-2.4); AST(SGOT) 27 U/L (15-37); Alanine Aminotransfer ALT/SGPT 37 U/L (16-61); Albumin, Serum 2.3 g/dL (3.2-5.0); Alkaline Phosphatase 252 U/L (45-117); Anion Gap 5 (5-15); BUN 29 mg/dL (7-18); BUN/Creat Ratio 18.1 RATIO (10-20); Calcium,Total 8.8 mg/dL (8.5-10.1); Chloride 98 mmol/L (98-107); EST Glomerular Filtration Rate 45 mL/min (>60); Est Glom Filt Rate - Afr Amer 54 mL/min (>60); Estimated Creatinine Clearance 36.72 ml/min; Globulin 4.9 g/dL (2.2-4.2); Glucose 288 mg/dL (74-106); Potassium 3.4 mmol/L (3.5-5.1); Protein, Total 7.2 g/dL (6.4-8.2); Sodium Level 133 mmol/L (136-145)
[2020-05-08 13:51] VITALS: BP 128/55; PULSE 71; RESP 19; O2SAT 98
--- NOTE | 2020-05-08 13:51 | CT_ITS ---
STUDY: CT ABDOMEN AND PELVIS WITH CONTRAST REASON FOR EXAM: Male, 74 years old. Abdomen pain, weakness, hypertension, diabetes, pancreatic cancer with whipple 01/2020. RADIATION DOSAGE (If Supplied By Facility): CTDIvol = ( 22.48 ) mGy, DLP = ( 1139.28 ) mGycm TECHNIQUE: Transaxial images were obtained from the dome of the diaphragm to the symphysis pubis without oral contrast. IV 75mL Isovue-300 was administered. Sagittal and coronal images were reconstructed. Individualized dose optimization techniques were used for this CT. COMPARISON: Comparison is made with prior study dated 05/06/2020. FINDINGS: The visualized lung bases are unremarkable. Coronary artery calcification. There is hepatomegaly with diffuse hepatic enlargement. Stable tiny hypodensities in the liver suggestive of small cysts. There are surgical clips in the gallbladder fossa consistent with a prior cholecystectomy. Normal spleen. The patient is status post WHIPPLE procedure with resection of the pancreatic head and anastomosis. There is evidence of scattered calcifications in the body and tail portions of the pancreas suggesting chronic pancreatitis. Normal bilateral adrenal glands. Stable small cortical cysts in the right kidney. Stable parapelvic cyst in the left kidney. There is an 8.4 mm calculus in the posterior aspect of the upper pole calyx of the left kidney. A punctate calcification is also seen in the lower pole calyx. Small cortical cysts are seen in the left kidney. Stable nonspecific bilateral perinephric stranding. There is a small hiatal hernia. Normal small intestine. There are multiple colonic diverticula consistent with diverticulosis. The appendix is visualized and appears normal. There is diffuse atherosclerotic calcification of the abdominal aorta, without a demonstrated aneurysm. Normal inferior vena cava. Normal retroperitoneum. Diffuse bladder wall thickening. The bladder is not completely distended. Normal abdominal wall. There are diffuse degenerative changes of the visualized lumbar spine. CT/Abdomen/Pelvis W IV Cont ONLY IMPRESSION: Stable examination. Electronically Signed: Pablo Yan, at 15:10 EST , Service support ,
--- NOTE | 2020-05-08 13:52 | RAD_ITS ---
STUDY: X-RAY CHEST REASON FOR EXAM: Male, 74 years old. FEVER, WEAKNESS, SEPITIC, HX WHIPPLE SURGERY IN FEBRUARY 2020, NO CHEST COMPLAINTS TECHNIQUE: Single AP portable view of the chest. COMPARISON: 03/13/2020. FINDINGS: The lungs are clear and expanded. There is no demonstrated pleural abnormality. Normal size heart. Normal mediastinum and david. Normal visualized pulmonary arteries. Normal visualized aortic arch and descending thoracic aorta. Normal visualized thoracic spine. There is degenerative osteoarthritis of the bilateral shoulders. There is no demonstrated abnormality of the visualized soft tissue structures of the upper abdomen. RAD/Chest 1 View (Portable) IMPRESSION: Normal x-ray examination of the chest. Electronically Signed: Zaki Singer MD at 15:12 EST , Service support ,
--- NOTE | 2020-05-08 14:21 | ED.DCSUM_ITS ---
History of Present Illness Informant: Patient Narrative: 74-year-old male presents the emergency department stating that his primary care physician sent him here to get something. He does not know what that was. Patient had a Whipple procedure about 3 months ago for pancreatic cancer. He has subsequently been given a cancer free diagnosis.. He was treated for postoperative infection with Augmentin. He was seen 2 days ago where he had fever and right-sided abdominal pain. His white count was 12. CT abdomen pe lvis was negative. He was discharged home. He states he has not had any more fever today and is actually feeling better. He still has some mild pain on the right upper abdomen. He states he does not have much of an appetite but has been drinking fluids normally. He denies any nausea vomiting diarrhea. No cough or shortness of breath. I spoke with his primary care physician who states that he had had a message from nursing stating that the patient was having rigors and was tachycardic and was concerned the patient was septic. His tells me his temperature last night was 99. <Jordin Pierre - Last Filed: 05/08/20 15:39> <Ted Cháevz - Last Filed: 05/09/20 03:15> Chief Complaint: Fatigue - Past Medical History (1) Diabetes mellitus Status: Chronic (2) Pancreatic cancer Status: Chronic <Jordin Pierre - Last Filed: 05/08/20 15:39> Past Medical History Past Medical History: - - Pancreatic cancer hypertension Surgical History: - - Whipple procedure Smoking Status: Former smoker Drugs: None <Jordin Pierre - Last Filed: 05/08/20 15:39> <Ted Chávez - Last Filed: 05/09/20 03:15> - Allergies and Home Meds Allergies/Adverse Reactions: Allergies varicella-zoster immune globulin (h Adverse Reaction (Mild, Verified 05/08/20 12:31) syncope Primary Care Physician: Jose Alston MD [Primary Care Provider] - 3-5 Days if not improving Review of Systems General: Reports: Chills, Fever, Malaise. Denies: Sweats Eyes: Denies: Visual changes - bilaterally, Diplopia ENT: Denies: Rhinorrhea, Sore throat Cardiovascular: Denies: Chest pain, Palpitations Respiratory: Denies: Dyspnea, Cough, Dyspnea on exertion Gastrointestinal: Reports: Abdominal pain. Denies: Nausea, Vomiting, Diarrhea, Melena, Hematochezia Genitourinary: Denies: Dysuria, Hematuria, Frequency Musculoskeletal: Denies: Back pain, Extremity Pain Skin: Denies: Rash, Wounds Neurological: Denies: Headache, Weakness, Numbness <Jordin Pierre - Last Filed: 05/08/20 15:39> Physical Exam Vital Signs/Narrative: Vital Signs Temp Pulse Resp BP Pulse Ox 05/08/20 13:51 71 19 H 128/55 H 98 05/08/20 13:01 98.2 F 82 18 122/54 H 98 05/08/20 12:26 98.2 F 82 18 122/54 H 98 Inital Vital Signs reviewed: Yes General: Well nourished, Well developed, No Acute Distress Head: Normocephalic, Atraumatic Eyes: Perrl, EOMI ENT: Moist mucous membranes, No rhinorrhea Neck: Supple, Nontender Cardiovascular: Regular rate, Regular rhythm, No murmurs Respiratory: No distress, CTA bilaterally, Chest nontender Abdomen: Soft, Nontender, Nondistended, Normal bowel sounds Back: Nontender, Normal Inspection Extremities: Nontender, No edema Skin: Normal color, No rash Neurological: Alert, Oriented x3, Cranial nerves II-XII grossly intact, Normal Strength, Normal Sensation Psychological: Normal affect, Normal Mood <Jordin Pierre - Last Filed: 05/08/20 15:39> Diagnostic/Tx/Re-eval Clinical Impression(s) from Imaging Studies Abdomen/Pelvis CT 05/08/20 13:51 IMPRESSION: Stable examination. Electronically Signed: Pablo Yan at 15:10 EST , Service support , Chest X-Ray 05/08/20 13:52 IMPRESSION: Normal x-ray examination of the chest. Electronically Signed: Zaki Singer MD at 15:12 EST , Service support , Laboratory Last Values WBC 16.8 K/mm3 (4.4-11.0) H 05/08/20 12:30 RBC 3.88 M/mm3 (4.6-6.2) L 05/08/20 12:30 Hgb 10.2 g/dL (13.0-16.5) L 05/08/20 12:30 Hct 31.3 % (40-54) L 05/08/20 12:30 MCV 80.7 fL (80-94) 05/08/20 12:30 MCH 26.3 pg (27.0-32.0) L 05/08/20 12:30 MCHC 32.6 g/dL (32-36) 05/08/20 12:30 RDW Std Deviation 50.6 fl (35.1-43.9) H 05/08/20 12:30 RDW Coeff of Lanre 17.2 % (11.6-14.6) H 05/08/20 12:30 Plt Count 570 K/mm3 (150-450) H 05/08/20 12:30 MPV 9.4 fl (6.2-12.0) 05/08/20 12:30 Immature Gran % (Auto) 0.500 % (0.0-0.9) 05/08/20 12:30 Neut % (Auto) 86.2 % (47-70) H 05/08/20 12:30 Lymph % (Auto) 5.1 % (19-41) L 05/08/20 12:30 [place] % (Auto) 8.1 % (0-10) 05/08/20 12:30 Eos % (Auto) 0.0 % (0-5) 05/08/20 12:30 Baso % (Auto) 0.1 % (0-1) 05/08/20 12:30 Absolute Neuts (auto) 14.4 X10^3/uL (2.0-7.7) H 05/08/20 12:30 Absolute Lymphs (auto) 0.86 X10^3/uL (0.83-4.51) 05/08/20 12:30 Nucleated RBC % 0 % (0-5) 05/08/20 12:30 Sodium 133 mmol/L (136-145) L 05/08/20 12:30 Potassium 3.4 mmol/L (3.5-5.1) L 05/08/20 12:30 Chloride 98 mmol/L (98-107) 05/08/20 12:30 Carbon Dioxide 30.0 mmol/L (21.0-32.0) 05/08/20 12:30 Anion Gap 5 (5-15) 05/08/20 12:30 BUN 29 mg/dL (7-18) H 05/08/20 12:30 Creatinine 1.60 mg/dL (0.70-1.30) H 05/08/20 12:30 Estim Creat Clear Calc 36.72 ml/min 05/08/20 12:30 Est GFR (MDRD) Af Amer 54 mL/min (>60) L 05/08/20 12:30 Est GFR (MDRD) Non-Af 45 mL/min (>60) L 05/08/20 12: BUN/Creatinine Ratio 18.1 RATIO (-20) 05/08/20 12:30 Glucose 288 mg/dL (74-106) H 05/08/20 12:30 Lactic Acid 2.0 mmol/L (0.4-1.9) 05/08/20 12:30 Calcium 8.8 mg/dL (8.5-10.1) 05/08/20 12:30 Total Bilirubin 0.80 mg/dL (0.20-1.00) 05/08/20 12:30 AST 27 U/L (15-37) 05/08/20 12:30 ALT 37 U/L (16-61) 05/08/20 12:30 Alkaline Phosphatase 252 U/L (45-117) H 05/08/20 12:30 Total Protein 7.2 g/dL (6.4-8.2) 05/08/20 12:30 Albumin 2.3 g/dL (3.2-5.0) L 05/08/20 12:30 Globulin 4.9 g/dL (2.2-4.2) H 05/08/20 12:30 Albumin/Globulin Ratio 0.5 RATIO (0.9-2.4) L 05/08/20 12:30 Urine Color Yellow (Yellow) 05/08/20 14:30 Urine Clarity Sl. Cloudy (Clear) 05/08/20 14:30 Urine pH 5.0 (5.0 - 8.0) 05/08/20 14:30 Ur Specific [place] 1.010 (1.002-1.030) 05/08/20 14:30 Urine Protein 30 mg/dl (Negative) H 05/08/20 14:30 Urine Glucose (UA) Normal mg/dl (Normal) 05/08/20 14:30 Urine Ketones Negative mg/dl (Negative) 05/08/20 14:30 Urine Occult Blood 25 /ul (Negative) H 05/08/20 14:30 Urine Nitrite Negative (Negative) 05/08/20 14:30 Urine Bilirubin Negative mg/dL (Negative) 05/08/20 14:30 Urine Urobilinogen Normal mg/dl (Normal) 05/08/20 14:30 Ur Leukocyte Esterase Negative /ul (Negative) 05/08/20 14:30 Urine RBC 0-5 SEEN /hpf (0-5) 05/08/20 14:30 Urine WBC 0 SEEN /hpf (0-5) 05/08/20 14:30 Ur Squamous Epith Cells 0-5 SEEN /hpf (0-5) 05/08/20 14:30 Urine Bacteria 0 SEEN /hpf (None Seen) 05/08/20 14:30 Urine Mucus 0 SEEN /hpf (<or=2+) 05/08/20 14:30 - Medical Decision Making Patient's white cell count has increased from 12-17. Lactic acid is normal. Slight elevation in creatinine he received a liter of fluids. I interpretation of the single view plain film of the chest showed no acute findings (and was later agreed with by radiology) and the CT of his abdomen pelvis appeared stable compared to prior. In the past (February 2020) the patient had a similar pain and repeat elevation of white blood cell count and did well with a course of Augmentin. Cultures grew out E. coli. I think is reasonable that we can give him a course of Augmentin. I do not see a reason that he needs to be admitted to the hospital at this time. He is otherwise afebrile and has normal vital signs. <Jordin Pierre - Last Filed: 05/08/20 15:39> - Medical Decision Making Lab contacted nurse that my rinse blood culture was growing gram-negative rods. White count was elevated during visit yesterday. Lactate was normal at 2.0. There is a history of E. coli infection. Patient was prescribed Augmentin. Since she had elevated white count and has gram-negative rods growing he has sepsis and will require IV antibiotics admission. Nurse will call patient now to return. <Ted Chávez - Last Filed: 05/09/20 03:15> ED Disposition <IgnacioJordin - Last Filed: 05/08/20 15:39> <Ted Chávez - Last Filed: 05/09/20 03:15> - Plan for ED Patient: Disposition: Home or Assisted Living Diagnosis: Abdominal pain, Leukocytosis Instructions: ED Unknown Causes of Abdominal ... Prescriptions: Amox/Clavulanate Tablet [Augmentin Tablet] 875 mg PO Q12H #20 tab Prescription Printed Referrals: Jose Alston MD [Primary Care Provider] - 3-5 Days if not improving
[2020-05-08 14:32] LABS: Bacteria 0 SEEN /hpf (None Seen); Mucous, Urine 0 SEEN /hpf (<or=2+); White Blood Cells 0 SEEN /hpf (0-5)
[2020-05-08 14:47] LABS: Color, Urine Yellow (Yellow); Glucose, Dipstick Normal (Normal); Ketone-Dipstick Negative (Negative); Leukocyte Esterase-Dipstick Negative /ul (Negative); Nitrite-Dipstick Negative (Negative); Occult Blood-Urine 25 /ul (Negative); Protein-Dipstick 30 mg/dl (Negative); Urine Bilirubin Dipstick Negative (Negative); Urine Clarity Sl. Cloudy (Clear); Urine Urobilinogen Normal (Normal)
[2020-05-08 14:53] VITALS: BP 129/48; PULSE 73; PULSE 75; RESP 21; TEMP 37; O2SAT 98; O2SAT 99
[2020-05-08] MEDS: 0.9% Normal Saline 1,000 ML 999 ML IV (14:57)
[2020-05-08 15:00] LABS: Red Blood Cells-Urine 0-5 SEEN /hpf (0-5); Squamous Epithelial Cells - UA 0-5 SEEN /hpf (0-5)
[2020-05-08 15:26] VITALS: BP 128/56; PULSE 68; PULSE 72; RESP 18; RESP 24; TEMP 36.9; O2SAT 99
[2020-05-08 15:49] VITALS: BP 134/55; PULSE 70; RESP 21; O2SAT 99
[2020-05-08 17:23] LABS: Reflex Lactate? Y
--- NOTE | 2020-05-09 03:16 | ED.RN ---
called pt's cell phone number, and it went to answering machine, responded to call back hospital.
--- NOTE | 2020-05-09 07:47 | ED.RN ---
THIS NURSE CONTACTED THE PT TO NOTIFY HIM OF HIS BLOOD CULTURE RESULTS. AT THIS TIME, AUGMENTIN EFFECTIVE AT THIS TIME PER DR HUBER
== END 2020-05-08 16:00 | disposition home or self-care (01) ==
PROVIDERS: Emergency Provider Emergency Medicine; PCP Family Medicine
DX: A41.51 Sepsis due to Escherichia coli [E. coli] (principal); R10.11 Right upper quadrant pain; I10 Essential (primary) hypertension; E11.9 Type 2 diabetes mellitus without complications; Z85.07 Personal history of malignant neoplasm of pancreas; Z87.891 Personal history of nicotine dependence; Z79.82 Long term (current) use of aspirin; Z79.4 Long term (current) use of insulin; Z79.899 Other long term (current) drug therapy
CPT/HCPCS: 71045; 74177; 80053; 81001; 83605; 85025; 87040; 87077; 87186; 96360; 99285; Q9967; A4216

== ENCOUNTER → 2020-11-25 09:35 | Outpatient (CLI) | payer MEDICARE, OTHER, SELFPAY ==
[2020-11-25 12:13] LABS: Absolute Lymphocyte Count 2.09 X10^3/uL (0.83-4.51); Absolute Neutrophil Count 6.8 X10^3/uL (2.0-7.7); Basophil# 0.04 X10^3/uL; Basophil% 0.4 % (0-1); Eosinophil# 0.08 X10^3/uL; Eosinophils% 0.8 % (0-5); Hematocrit 39.4 % (40-54); Lymphocyte # 2.09 X10^3/ul (0.83-4.51); Mean Corp Hgb Conc 30.5 g/dL (32-36); Mean Corpuscular Hgb 25.9 pg (27.0-32.0); Mean Corpuscular Volume 84.9 fL (80-94); Mean Platelet Vol. 10.1 fl (6.2-12.0); NRBC Flagged by Analyzer 0 % (0-5); Neutrophil # 6.79 X10^3/uL (2.7-7.7); Neutrophil % 68.3 % (47-70); Platelet Count 364 K/mm3 (150-450); RBC Distribution Width CV 17.3 % (11.6-14.6); RBC Distribution Width SD 53.1 fl (35.1-43.9); Red Blood Count 4.64 M/mm3 (4.6-6.2)
[2020-11-25 12:24] LABS: ALB/GLOB Ratio 0.9 RATIO (0.9-2.4); AST(SGOT) 21 U/L (15-37); Alanine Aminotransfer ALT/SGPT 28 U/L (16-61); Albumin, Serum 3.7 g/dL (3.2-5.0); Alkaline Phosphatase 96 U/L (45-117); Anion Gap 5 (5-15); BUN 23 mg/dL (7-18); BUN/Creat Ratio 15.8 RATIO (10-20); Calcium,Total 8.8 mg/dL (8.5-10.1); Chloride 103 mmol/L (98-107); Cholesterol 194 mg/dL (200); Creatinine, Serum 1.46 mg/dL (0.70-1.30); EST Glomerular Filtration Rate 50 mL/min (>60); Est Glom Filt Rate - Afr Amer 60 mL/min (>60); Globulin 4.1 g/dL (2.2-4.2); Glucose 117 mg/dL (74-106); High Density Lipoprotein 42 mg/dL; Potassium 4.2 mmol/L (3.5-5.1); Protein, Total 7.8 g/dL (6.4-8.2); Sodium Level 138 mmol/L (136-145); Triglycerides 160 mg/dL; Very Low Density Lipoprotein 32 mg/dL (5-40)
[2020-11-25 12:39] LABS: Microalbumin,Random Urine 59.7 mg/L (NO RANGE EST.); Microalbumin:Creatinine Ratio 58.5 mg/g CRE (<30 mg/g CRE)
== END ==
PROVIDERS: PCP Family Medicine; Visit Provider Family Medicine
DX: E78.00 Pure hypercholesterolemia, unspecified (principal); I10 Essential (primary) hypertension; E11.21 Type 2 diabetes mellitus with diabetic nephropathy; E11.65 Type 2 diabetes mellitus with hyperglycemia
CPT/HCPCS: 36415; 80053; 80061; 82043; 82570; 85025

== ENCOUNTER → 2020-12-05 11:14 | Outpatient (CLI) | payer MEDICARE, OTHER, SELFPAY ==
[2020-12-05 13:51] LABS: Mucous, Urine 0 SEEN /hpf (<or=2+); Red Blood Cells-Urine 0 SEEN /hpf (0-5); Squamous Epithelial Cells - UA 0 SEEN /hpf (0-5)
[2020-12-05 17:03] LABS: Color, Urine Yellow (Yellow); Glucose, Dipstick 250 mg/dl (Normal); Ketone-Dipstick 5 mg/dl (Negative); Leukocyte Esterase-Dipstick 25 /ul (Negative); Nitrite-Dipstick Negative (Negative); Occult Blood-Urine 10 /ul (Negative); Protein-Dipstick 100 mg/dl (Negative); Urine Bilirubin Dipstick Negative (Negative); Urine Clarity Clear (Clear); Urine Urobilinogen 4 mg/dl (Normal)
[2020-12-05 17:09] LABS: Bacteria 1+ /hpf (None Seen); White Blood Cells 0-5 SEEN /hpf (0-5)
[2020-12-05 17:10] LABS: Coarse Granular Cast 5-10 SEEN /lpf (0-5 /lpf)
== END ==
PROVIDERS: PCP Family Medicine; Visit Provider Family Medicine
DX: R10.9 Unspecified abdominal pain (principal)
CPT/HCPCS: 81001; 87086; 87088

== ENCOUNTER → 2021-03-11 07:52 | Outpatient (CLI) | payer MEDICARE, OTHER, SELFPAY ==
--- NOTE | 2021-03-11 08:10 | RAD_ITS ---
PROCEDURE: Upper GI with Small Bowel Follow Through DATE OF EXAMINATION: 03/11/2021.. INDICATION: Male, 75 years old. History of a WHIPPLE procedure. Recurring infection of the liver. FLUOROSCOPY TIME (if supplied): (2:36) minutes/seconds. 18 images were obtained. TECHNIQUE: Radiographic and fluoroscopic images of the distal esophagus, stomach, and entire small intestine were obtained following the oral ingestion of barium. COMPARISON: None. FINDINGS: The electronic warfare technical film of the abdomen demonstrates a normal bowel gas pattern. There are no abnormal calcifications or organomegaly demonstrated. The visualized osseous structures are normal. The patient is status post WHIPPLE procedure. There is anastomosis between the common bile duct and the second portion of the duodenum. There is free reflux of barium into the biliary system. The esophagus is unremarkable. No evidence of gastroesophageal reflux. A single contrast small bowel follow through exam demonstrates the small bowel to have no evidence for stricture, ulceration or mass. The transit time is prolonged although there is no evidence of obstruction.. RAD/Upper GI/w Small Bowel IMPRESSION: The patient is status post WHIPPLE procedure with anastomosis of the common bile duct to the second portion of the duodenum. There is free flow of contrast from the duodenum into the intrahepatic biliary system. Prolonged transit through the small bowel without evidence of obstruction. Electronically Signed: Pablo Yan MD at 13:28 EDT , Service support ,
== END ==
PROVIDERS: PCP Family Medicine
DX: K83.09 Other cholangitis (principal)
CPT/HCPCS: 74246; 74248

== ENCOUNTER → 2022-02-16 | Outpatient (CLI) | payer MEDICARE, OTHER, SELFPAY ==
[2022-02-16 09:57] LABS: Absolute Lymphocyte Count 2.18 X10^3/uL (0.83-4.51); Basophil# 0.04 X10^3/uL; Basophil% 0.5 % (0-1); Eosinophil# 0.26 X10^3/uL; Eosinophils% 3.2 % (0-5); Hematocrit 35.9 % (40-54); Lymphocyte # 2.18 X10^3/ul (0.83-4.51); Lymphocyte % 26.5 % (19-41); Mean Corp Hgb Conc 30.6 g/dL (32-36); Mean Corpuscular Hgb 26.1 pg (27.0-32.0); Mean Corpuscular Volume 85.3 fL (80-94); Mean Platelet Vol. 9.8 fl (6.2-12.0); Monocyte# 0.68 X10^3/uL; Monocyte% 8.3 % (0-10); NRBC Flagged by Analyzer 0 % (0-5); Neutrophil # 5.03 X10^3/uL (2.7-7.7); Neutrophil % 60.9 % (47-70); Platelet Count 435 K/mm3 (150-450); RBC Distribution Width CV 16.5 % (11.6-14.6); RBC Distribution Width SD 51.1 fl (35.1-43.9); Red Blood Count 4.21 M/mm3 (4.6-6.2); White Blood Count 8.2 K/mm3 (4.4-11.0)
[2022-02-16 10:08] LABS: Microalbumin:Creatinine Ratio 65.7 mg/g CRE (<30 mg/g CRE)
[2022-02-16 10:10] LABS: Vitamin D,25 Hydroxy 22.3 ng/mL
[2022-02-16 10:33] LABS: ALB/GLOB Ratio 0.7 RATIO (0.9-2.4); AST(SGOT) 23 U/L (15-37); Alanine Aminotransfer ALT/SGPT 27 U/L (16-61); Albumin, Serum 3.1 g/dL (3.2-5.0); Alkaline Phosphatase 120 U/L (45-117); Anion Gap 7 (5-15); BUN 33 mg/dL (7-18); BUN/Creat Ratio 23.2 RATIO (10-20); Calcium,Total 8.8 mg/dL (8.5-10.1); Chloride 106 mmol/L (98-107); Cholesterol 139 mg/dL (200); Creatinine, Serum 1.42 mg/dL (0.70-1.30); EST Glomerular Filtration Rate 51 mL/min (>60); Est Glom Filt Rate - Afr Amer 62 mL/min (>60); Globulin 4.4 g/dL (2.2-4.2); Glucose 174 mg/dL (74-106); High Density Lipoprotein 36 mg/dL; Potassium 3.8 mmol/L (3.5-5.1); Protein, Total 7.5 g/dL (6.4-8.2); Sodium Level 140 mmol/L (136-145); Triglycerides 138 mg/dL; Very Low Density Lipoprotein 28 mg/dL (5-40)
== END | disposition home or self-care (01) ==
LOC: MFPLAB 08:40
PROVIDERS: PCP Family Medicine; Referring Provider Family Medicine; Visit Provider Family Medicine
DX: E11.22 Type 2 diabetes mellitus with diabetic chronic kidney disease (principal); E11.21 Type 2 diabetes mellitus with diabetic nephropathy; N18.31 Chronic kidney disease, stage 3a
CPT/HCPCS: 36415; 80053; 80061; 82043; 82306; 82570; 85025

== ENCOUNTER → 2022-05-18 | Outpatient (CLI) | payer MEDICARE, OTHER, SELFPAY ==
[2022-05-26 11:57] LABS: Pancreatic Elastase, Fecal < 50 (>200)
== END | disposition home or self-care (01) ==
LOC: LABSPEC 11:22
PROVIDERS: PCP Family Medicine; Referring Provider Family Medicine; Visit Provider Family Medicine
DX: K86.9 Disease of pancreas, unspecified (principal)
CPT/HCPCS: 82653; 83986

== ENCOUNTER → 2022-08-13 | Outpatient (CLI) | payer MEDICARE, OTHER, SELFPAY ==
[2022-08-13 12:36] LABS: Vitamin D,25 Hydroxy 24.7 ng/mL
[2022-08-13 12:40] LABS: ALB/GLOB Ratio 0.8 RATIO (0.9-2.4); AST(SGOT) 29 U/L (15-37); Alanine Aminotransfer ALT/SGPT 29 U/L (16-61); Albumin, Serum 3.4 g/dL (3.2-5.0); Alkaline Phosphatase 104 U/L (45-117); Anion Gap 7 (5-15); BUN 25 mg/dL (7-18); BUN/Creat Ratio 18.7 RATIO (10-20); Calcium,Total 9.3 mg/dL (8.5-10.1); Chloride 106 mmol/L (98-107); Creatinine, Serum 1.34 mg/dL (0.70-1.30); EST Glomerular Filtration Rate 55 mL/min (>60); Est Glom Filt Rate - Afr Amer 66 mL/min (>60); Glucose 124 mg/dL (74-106); Lipase 196 U/L (73-393); Potassium 3.3 mmol/L (3.5-5.1); Protein, Total 7.4 g/dL (6.4-8.2); Sodium Level 140 mmol/L (136-145)
== END | disposition home or self-care (01) ==
PROVIDERS: PCP Family Medicine; Referring Provider Family Medicine; Visit Provider Family Medicine
DX: N18.31 Chronic kidney disease, stage 3a (principal); K86.89 Other specified diseases of pancreas
CPT/HCPCS: 36415; 80053; 82306; 83690

== ENCOUNTER → 2022-11-09 | Outpatient (CLI) | payer MEDICARE, OTHER, SELFPAY ==
[2022-11-09 12:20] LABS: Absolute Lymphocyte Count 1.54 X10^3/uL (0.83-4.51); Absolute Neutrophil Count 5.5 X10^3/uL (2.0-7.7); Basophil# 0.03 X10^3/uL; Basophil% 0.4 % (0-1); Eosinophil# 0.12 X10^3/uL; Eosinophils% 1.5 % (0-5); Hematocrit 38.6 % (40-54); Hemoglobin 11.7 g/dL (13.0-16.5); Lymphocyte # 1.54 X10^3/ul (0.83-4.51); Lymphocyte % 19.8 % (19-41); Mean Corp Hgb Conc 30.3 g/dL (32-36); Mean Corpuscular Hgb 26.2 pg (27.0-32.0); Mean Corpuscular Volume 86.5 fL (80-94); Mean Platelet Vol. 9.8 fl (6.2-12.0); Monocyte# 0.56 X10^3/uL; Monocyte% 7.2 % (0-10); NRBC Flagged by Analyzer 0 % (0-5); Neutrophil # 5.48 X10^3/uL (2.7-7.7); Neutrophil % 70.5 % (47-70); Platelet Count 410 K/mm3 (150-450); RBC Distribution Width CV 15.5 % (11.6-14.6); RBC Distribution Width SD 49.5 fl (35.1-43.9); Red Blood Count 4.46 M/mm3 (4.6-6.2); White Blood Count 7.8 K/mm3 (4.4-11.0)
[2022-11-09 13:14] LABS: ALB/GLOB Ratio 0.7 RATIO (0.9-2.4); AST(SGOT) 31 U/L (15-37); Alanine Aminotransfer ALT/SGPT 30 U/L (16-61); Albumin, Serum 3.2 g/dL (3.2-5.0); Alkaline Phosphatase 153 U/L (45-117); Anion Gap 6 (5-15); BUN 35 mg/dL (7-18); BUN/Creat Ratio 24.5 RATIO (10-20); Calcium,Total 9.3 mg/dL (8.5-10.1); Chloride 110 mmol/L (98-107); Creatinine, Serum 1.43 mg/dL (0.70-1.30); EST Glomerular Filtration Rate 51 mL/min (>60); Est Glom Filt Rate - Afr Amer 61 mL/min (>60); Globulin 4.6 g/dL (2.2-4.2); Glucose 194 mg/dL (74-106); Lipase 42 U/L (13-75); Magnesium 2.2 mg/dL (1.6-2.6); Potassium 5.3 mmol/L (3.5-5.1); Protein, Total 7.8 g/dL (6.4-8.2); Sodium Level 137 mmol/L (136-145)
== END | disposition home or self-care (01) ==
LOC: MFPLAB 10:48
PROVIDERS: PCP Family Medicine; Visit Provider Family Medicine
DX: E87.6 Hypokalemia (principal); K86.89 Other specified diseases of pancreas
CPT/HCPCS: 36415; 80053; 83690; 83735; 85025

== ENCOUNTER → 2023-07-29 | Outpatient (CLI) | payer MEDICARE, OTHER, SELFPAY ==
[2023-07-29 15:43] LABS: Absolute Lymphocyte Count 2.51 X10^3/uL (0.83-4.51); Basophil# 0.06 X10^3/uL; Basophil% 0.6 % (0-1); Eosinophil# 0.21 X10^3/uL; Eosinophils% 1.9 % (0-5); Hematocrit 36.3 % (40-54); Hemoglobin 11.3 g/dL (13.0-16.5); Lymphocyte # 2.51 X10^3/ul (0.83-4.51); Lymphocyte % 23.2 % (19-41); Mean Corp Hgb Conc 31.1 g/dL (32-36); Mean Corpuscular Volume 83.6 fL (80-94); Mean Platelet Vol. 10.6 fl (6.2-12.0); Monocyte% 9.2 % (0-10); NRBC Flagged by Analyzer 0 % (0-5); Neutrophil # 7.02 X10^3/uL (2.7-7.7); Neutrophil % 64.7 % (47-70); Platelet Count 706 K/mm3 (150-450); RBC Distribution Width CV 18.6 % (11.6-14.6); RBC Distribution Width SD 55.4 fl (35.1-43.9); Red Blood Count 4.34 M/mm3 (4.6-6.2); White Blood Count 10.8 K/mm3 (4.4-11.0)
[2023-07-29 16:06] LABS: Vitamin D,25 Hydroxy 39.8 ng/mL
[2023-07-29 16:20] LABS: ALB/GLOB Ratio 0.6 RATIO (0.9-2.4); AST(SGOT) 40 U/L (15-37); Alanine Aminotransfer ALT/SGPT 40 U/L (16-61); Albumin, Serum 3.1 g/dL (3.2-5.0); Alkaline Phosphatase 230 U/L (45-117); Anion Gap 6 (5-15); BUN 26 mg/dL (7-18); BUN/Creat Ratio 20.2 RATIO (10-20); Calcium,Total 9.3 mg/dL (8.5-10.1); Chloride 106 mmol/L (98-107); Creatinine, Serum 1.29 mg/dL (0.70-1.30); EST Glomerular Filtration Rate 57 mL/min (>60); Est Glom Filt Rate - Afr Amer 69 mL/min (>60); Globulin 4.8 g/dL (2.2-4.2); Glucose 138 mg/dL (74-106); Potassium 4.1 mmol/L (3.5-5.1); Protein, Total 7.9 g/dL (6.4-8.2); Sodium Level 137 mmol/L (136-145); T4 Free Direct 0.94 ng/dL (0.76-1.46); Thyroid Stim Hormone (TSH) 2.89 uIU/mL (0.358-3.74)
[2023-07-29 16:32] LABS: PTHIN 12.5 pg/mL (18.4-80.1)
== END | disposition home or self-care (01) ==
LOC: MFPLAB 12:29
PROVIDERS: PCP Family Medicine; Visit Provider Family Medicine
DX: I12.9 Hypertensive chronic kidney disease with stage 1 through stage 4 chronic kidney disease, or unspecified chronic kidney disease (principal); N18.31 Chronic kidney disease, stage 3a
CPT/HCPCS: 36415; 80053; 82306; 83970; 84439; 84443; 85025

== ENCOUNTER → 2024-03-16 | Outpatient (CLI) | payer MEDICARE, OTHER, SELFPAY ==
[2024-03-16 15:38] LABS: ALB/GLOB Ratio 0.7 RATIO (0.9-2.4); AST(SGOT) 77 U/L (15-37); Alanine Aminotransfer ALT/SGPT 48 U/L (16-61); Albumin, Serum 3.2 g/dL (3.2-5.0); Alkaline Phosphatase 82 U/L (45-117); Anion Gap 4 (5-15); BUN 30 mg/dL (7-18); BUN/Creat Ratio 19.1 RATIO (10-20); Calcium,Total 9.3 mg/dL (8.5-10.1); Chloride 107 mmol/L (98-107); Creatinine, Serum 1.57 mg/dL (0.70-1.30); EST Glomerular Filtration Rate 45 mL/min (>60); Est Glom Filt Rate - Afr Amer 55 mL/min (>60); Globulin 4.3 g/dL (2.2-4.2); Glucose 131 mg/dL (74-106); PSA,Total - Annual Screen 0.51 ng/mL (0.00-4.00); Potassium 4.3 mmol/L (3.5-5.1); Protein, Total 7.5 g/dL (6.4-8.2); Sodium Level 136 mmol/L (136-145)
[2024-03-16 16:17] LABS: Microalbumin:Creatinine Ratio 657.8 mg/g CRE (<30 mg/g CRE)
== END | disposition home or self-care (01) ==
LOC: MFPLAB 11:50
PROVIDERS: PCP Family Medicine; Visit Provider Family Medicine
DX: I10 Essential (primary) hypertension (principal); Z12.5 Encounter for screening for malignant neoplasm of prostate
CPT/HCPCS: 36415; 80053; 82043; 82570; 84153; G0103

== ENCOUNTER → 2024-03-29 | Outpatient (CLI) | payer MEDICARE, OTHER, SELFPAY ==
[2024-03-29 10:37] LABS: 24 HR UR TOTAL VOLUME 3100 ML; 24 Hour Urine Protein 1422.9 mg/24HR (<150 MG/24HR); 24HR. UA Prot. Total Volume 3100 mL; 24HR. Urine Creatinine 1.56 g/24 HR (0.90-2.10); Urine Protein (24 Hour) 45.9 mg/dL (<11.9)
[2024-03-29 10:50] LABS: Urine Microalbumin (24 Hour) 762.6 mg/24 HR (0.0-30.0)
== END | disposition home or self-care (01) ==
LOC: MFPLAB 09:28
PROVIDERS: PCP Family Medicine; Referring Provider Family Medicine; Visit Provider Family Medicine
DX: N18.31 Chronic kidney disease, stage 3a (principal)
CPT/HCPCS: 82043; 82570; 84156

== ENCOUNTER → 2024-09-11 | Outpatient (CLI) | payer MEDICARE, OTHER, SELFPAY ==
[2024-09-11 15:51] LABS: Microalbumin:Creatinine Ratio 4706.8 mg/g CRE
[2024-09-11 16:28] LABS: ALB/GLOB Ratio 0.9 RATIO (0.9-2.4); AST(SGOT) 31 U/L (<=37); Alanine Aminotransfer ALT/SGPT 26 U/L (<=46); Albumin, Serum 3.5 g/dL (3.4-4.8); Alkaline Phosphatase 167 U/L (40-129); Anion Gap 10 (5-15); BUN 32 mg/dL (4-19); Calcium,Total 9.4 mg/dL (7.6-11.0); Carbon Dioxide 23.4 mmol/L (21.0-32.0); Chloride 104 mmol/L (98-108); Creatinine, Serum 1.66 mg/dL (0.70-1.20); EST Glomerular Filtration Rate 41 (>60); Globulin 3.8 g/dL (2.2-4.2); Glucose 214 mg/dL (70-99); Potassium 5.1 mmol/L (3.3-5.1); Protein, Total 7.3 g/dL (5.9-8.4); Sodium Level 138 mmol/L (133-145); Total Bilirubin 0.37 mg/dL (0.00-1.30)
[2024-09-11 16:40] LABS: Hemoglobin A1c 8.8 % (<=5.6)
[2024-09-13 06:08] LABS: Fructosamine 350 umol/L (0-285)
== END | disposition home or self-care (01) ==
LOC: MFPLAB 11:30
PROVIDERS: PCP Family Medicine; Visit Provider Family Medicine
DX: E11.21 Type 2 diabetes mellitus with diabetic nephropathy (principal); Z79.4 Long term (current) use of insulin
CPT/HCPCS: 36415; 80053; 82043; 82570; 82985; 83036

== ENCOUNTER → 2025-04-23 | Outpatient (CLI) | payer MEDICARE, OTHER, SELFPAY ==
[2025-04-23 13:05] LABS: AST(SGOT) 35 U/L (<=37); Alanine Aminotransfer ALT/SGPT 22 U/L (<=46); Albumin, Serum 3.6 g/dL (3.4-4.8); Alkaline Phosphatase 143 U/L (40-129); Anion Gap 10 (5-15); BUN 21 mg/dL (4-19); BUN/Creat Ratio 15.1 RATIO (10-20); Calcium,Total 9.3 mg/dL (7.6-11.0); Carbon Dioxide 25.9 mmol/L (21.0-32.0); Chloride 102 mmol/L (98-108); Globulin 3.8 g/dL (2.2-4.2); Glucose 97 mg/dL (70-99); Potassium 4.9 mmol/L (3.3-5.1)
== END | disposition home or self-care (01) ==
LOC: MFPLAB 08:08
PROVIDERS: PCP Family Medicine; Visit Provider Family Medicine
DX: E11.21 Type 2 diabetes mellitus with diabetic nephropathy (principal)
CPT/HCPCS: 36415; 80053